=== PATIENT | male | born 1995 | race Caucasian/White ===

== ENCOUNTER 2016-09-22 14:06 | Emergency (ER) | payer OTHER ==
[~2016-09-22] VITALS: Ht 182.9 cm; Wt 82.6 kg
[2016-09-22 14:06] VITALS: BP 156/69
[2016-09-22] MEDS ORDERED: BACT800T5 PO (14:25)
[2016-09-22] MEDS ORDERED: BACTRIM 160MG/800MG DS TAB PO ONE (14:30)
== END 2016-09-22 14:37 | disposition home or self-care (01) ==
LOC: M ED 14:06
DX: L02.211 Cutaneous abscess of abdominal wall (principal)

== ENCOUNTER 2016-09-23 21:13 | Emergency (ER) | payer OTHER ==
[~2016-09-23] VITALS: Ht 182.9 cm; Wt 79.0 kg
[~2016-09-23 21:13] MED LIST: BACT800T5 PO
[2016-09-23 21:14] VITALS: BP 141/69
== END 2016-09-23 22:39 | disposition home or self-care (01) ==
LOC: M ED 21:13
DX: L02.211 Cutaneous abscess of abdominal wall (principal)

== ENCOUNTER 2017-03-13 16:28 | Emergency (ER) | payer OTHER | END 2017-03-13 17:45 | disposition home or self-care (01) | LOC: M ED 16:28 | DX: L73.9 Follicular disorder, unspecified (principal) | CPT/HCPCS: 87186 ==

== ENCOUNTER 2018-06-24 18:37 | Emergency (ER) | payer OTHER ==
[~2018-06-24] VITALS: Ht 185.4 cm; Wt 86.4 kg
--- NOTE | 2018-06-24 20:32 | REP ---
PA and lateral chest: There are no comparisons. The lung day are clear. The cardiac size is normal. The joseph, mediastinum, and skeletal structures are unremarkable. Impression: Negative PA and lateral chest. Electronically Signed by Hayes Arrington MD 06/24/2018 08:24 P
[2018-06-24] MEDS ORDERED: AUGM875T28 PO ×2 (20:47→21:08)
[2018-06-24 21:03] VITALS: BP 137/73
== END 2018-06-24 21:09 | disposition home or self-care (01) ==
LOC: M ED 18:37
DX: J32.9 Chronic sinusitis, unspecified (principal); J40 Bronchitis, not specified as acute or chronic

== ENCOUNTER 2018-09-11 22:39 | Emergency (ER) | payer OTHER ==
[~2018-09-11] VITALS: Ht 185.4 cm; Wt 90.8 kg
[2018-09-11 22:39] VITALS: BP 130/61
[~2018-09-11 22:39] MED LIST changes: +AUGM875T28 PO
[2018-09-11] MEDS ORDERED: AUGMENTIN 875 MG TAB PO ONE (23:15)
[2018-09-11] MEDS ORDERED: AUGM875T28 PO (23:22)
== END 2018-09-12 00:14 | disposition home or self-care (01) ==
LOC: M ED 22:39
DX: S60.571A Other superficial bite of hand of right hand, initial encounter (principal); W55.01XA Bitten by cat, initial encounter; Y92.89 Other specified places as the place of occurrence of the external cause

== ENCOUNTER 2024-11-21 19:28 | Emergency (ER) | payer OTHER ==
[~2024-11-21] VITALS: Ht 185.4 cm; Wt 104.2 kg
[2024-11-21] MEDS: DERMABOND TOPICAL SKIN ADHESIVE TOP ONE (19:55)
[2024-11-21] MEDS: CEPHALEXIN 500 MG CAP PO ONE (20:18)
[2024-11-21] MEDS ORDERED: CEPH500C PO (20:31)
[2024-11-21 20:40] VITALS: BP 133/60; TEMP 98; O2SAT 98
== END 2024-11-21 20:45 | disposition home or self-care (01) ==
LOC: M ED 19:28
DX: S61.213A Laceration without foreign body of left middle finger without damage to nail, initial encounter (principal); W26.0XXA Contact with knife, initial encounter; Y92.009 Unspecified place in unspecified non-institutional (private) residence as the place of occurrence of the external cause; Y93.89 Activity, other specified; Y99.9 Unspecified external cause status